=== PATIENT | male | born 1960 | race Caucasian/White ===

== ENCOUNTER 2022-05-22 12:59 | Emergency (ER) | payer BC ==
--- NOTE | 2022-05-22 13:10 | ERPHSYRPT ---
- History of Present Illness Time Seen by Provider: 05/22/22 13:10 Source: patient Exam Limitations: no limitations Physician History: This is a 62-year-old white male patient who has recurrent sebaceous cyst on his back. In the last 2 days or so, the patient states that there is been some drainage from the lower thoracic level sebaceous cyst. He has recurrent sebaceous cysts. However, the drainage and tenderness in this area prompted his daughter to squeeze the area and pus exuded from the site per his report. Today there is tenderness and some mild drainage present. Patient has a history of hypertension. He is a current every day smoker of cigarettes. Timing/Duration: day(s) (2 to 3 days) Quality: painful Severity: mild (Mild) Possible Causes: other (Sebaceous cyst) Allergies/Adverse Reactions: amoxicillin Allergy (Verified 05/22/22 13:21) Home Medications: Ezetimibe 10 mg [Zetia 10 MG] 10 mg PO DAILY 05/22/22 [History] Hydrochlorothiazide 25 mg [hydroDIURIL 25 MG] 25 mg PO DAILY 05/22/22 [History] Losartan Potassium [Cozaar] 50 mg PO DAILY 05/22/22 [History] Tamsulosin HCl 0.4 mg [Flomax 0.4 MG] 0.4 mg PO DAILY 05/22/22 [History] Hx Tetanus, Diphtheria Vaccination/Date Given: Yes Hx Influenza Vaccination/Date Given: No Hx Pneumococcal Vaccination/Date Given: No Travel Risk - International Travel Have you traveled outside of the country in past 3 weeks: No - Coronavirus Screening Are you exhibiting any of the following symptoms?: No Close contact with a COVID-19 positive Pt in past 14-21 Days: No - Review of Systems Constitutional: No Symptoms Eyes: No Symptoms Ears, Nose, & Throat: No Symptoms Respiratory: No Symptoms Cardiac: No Symptoms Abdominal/Gastrointestinal: No Symptoms Genitourinary Symptoms: No Symptoms Musculoskeletal: No Symptoms Skin: Induration (Area of a sebaceous cyst with scant drainage present.) Neurological: No Symptoms Psychological: No Symptoms Endocrine: No Symptoms Hematologic/Lymphatic: No Symptoms Immunological/Allergic: No Symptoms All Other Systems: Reviewed and Negative - Past Medical History Pertinent Past Medical History: Yes Neurological History: No Pertinent History ENT History: No Pertinent History Cardiac History: No Pertinent History Respiratory History: No Pertinent History Endocrine Medical History: No Pertinent History Musculoskeletal History: Arthritis GI Medical History: No Pertinent History History: No Pertinent History Psycho-Social History: No Pertinent History Male Reproductive Disorders: No Pertinent History - Past Surgical History Past Surgical History: Yes (right index finger) Neuro Surgical History: No Pertinent History Cardiac: No Pertinent History Respiratory: No Pertinent History Gastrointestinal: No Pertinent History Genitourinary: No Pertinent History Musculoskeletal: Orthopedic Surgery Male Surgical History: No Pertinent History Other Surgical History: LT INDEX FINGER SURGERY - Social History Smoking Status: Current every day smoker How long have you smoked: 30years Exposure to second hand smoke: No Drug Use: none Patient Lives Alone: Yes - Nursing Vital Signs Nursing Vital Signs: Initial Vital Signs Pulse Rate 70 05/22/22 13:12 Respiratory Rate 16 05/22/22 13:12 Blood Pressure 141/81 05/22/22 13:12 O2 Sat by Pulse Oximetry 97 05/22/22 13:12 Pain Scale Pain Intensity 4 - Physical Exam General Appearance: no apparent distress, alert, anxiety, thin Eye Exam: PERRL/EOMI, eyes nml inspection Ears, Nose, Throat Exam: normal ENT inspection, moist mucous membranes Neck Exam: normal inspection, non-tender, supple, full range of motion Respiratory Exam: airway intact, No chest tenderness, No respiratory distress Gastrointestinal/Abdomen Exam: No tenderness Rectal Exam: not done Back Exam: other (Indurated drained sebaceous cyst caudal thoracic level. No expressible pus present. Cultures taken from site) Extremity Exam: normal inspection, normal range of motion, pelvis stable Neurologic Exam: alert, oriented x 3, cooperative, financial management analyst II-XII nml as tested, normal mood/affect, nml cerebellar function, nml station & gait, sensation nml Skin Exam: other (Infected, drained epidermal inclusion cyst caudal region of thoracic spine) Lymphatic Exam: No adenopathy SpO2 Interpretation: normal O2 Delivery: Room Air - Course Nursing assessment & vital signs reviewed: Yes Ordered Tests: Medication Summary Discontinued Medications Generic Name Dose Route Start Last Admin Trade Name Freq PRN Reason Stop Dose Admin Trimethoprim/Sulfamethoxazole Confirm 05/22/22 13:25 Smz/Tmp Ds Tablet 1 Tablet Administered 05/22/22 13:26 Dose 1 tab PO .STK-MED ONE - Progress Progress: improved - Departure Departure Disposition: Home Clinical Impression: Epidermal inclusion cyst, Induration of skin Condition: Stable Critical Care Time: No Referrals: MARIANNE GONSALVES MD [Primary Care Provider] - Follow up/PCP as directed Additional Instructions: Wash area 1-2 times a day with warm soapy water. Cover with nonstick bandage. May soak in a bath with warm Epson salts. May use tar-based drawing salve that you can obtain [id number] at a pharmacy. Take your antibiotics as prescribed. Follow-up with a general surgeon for surgical intervention to remove these epidermal inclusion cyst sac. Prescriptions: Smz/Tmp Ds Tablet [Bactrim Ds Tablet] 1 udtab PO BID #14 tablet
[2022-05-22 13:21] VITALS: BP 141/81; PULSE 70; O2SAT 97
[2022-05-22] MEDS ORDERED: BACTRIM DS TABLET PO ONE (13:25)
[2022-05-22] MEDS ORDERED: BACTRIM DS TABLET PO STA (13:49)
== END 2022-05-22 14:00 | disposition home or self-care (01) ==
LOC: ED 12:59
DX: L72.0 Epidermal cyst (principal); R23.4 Changes in skin texture; Z72.0 Tobacco use; Z79.899 Other long term (current) drug therapy
CPT/HCPCS: 87070; 99283; A9270-GY